=== PATIENT | male | born 1950 | race Caucasian/White ===

== ENCOUNTER → 2016-09-19 | Outpatient (CLI) | payer OTHER, MEDICARE | LOC: BHFA 10:15 | PROVIDERS: ATTEND Internal Medicine Cardiovascular Disease | DX: I25.10 Atherosclerotic heart disease of native coronary artery without angina pectoris (principal); I77.9 Disorder of arteries and arterioles, unspecified; E78.5 Hyperlipidemia, unspecified ==

== ENCOUNTER 2016-09-20 09:56 | Observation (INO) | payer OTHER, MEDICARE ==
--- NOTE | 2016-09-19 16:38 | GHP ---
HISTORY OF PRESENT ILLNESS: This is a gentleman who is admitted for a transurethral resection of bladder cancer. He is 65 years old. He presented from [facility], because of urologic abnormality noted on imaging study, and that showed he had a bladder lesion. He has denied hematuria, UTIs, urinary infections, and no history of stones. The recent MRI and CT scan study showed the incidental bladder lesion and cystoscopy confirmed that he had a right-sided bladder lesion. He is admitted for TURBT. PAST MEDICAL HISTORY: Bladder cancer, heart disease, and neurologic issues related to cervical disc disease. PAST SURGICAL HISTORY: Carotid endarterectomy and cervical fusion. MEDICATIONS: Pravastatin, trazodone, and CoQ10. ALLERGIES: None. FAMILY HISTORY: Heart disease. SOCIAL HISTORY: Light alcohol consumption, nonsmoker. He is not . Is a registered nurse. REVIEW OF SYSTEMS: Negative cardiac, respiratory, GI, and endocrine. PHYSICAL EXAM: VITAL SIGNS: Stable. CHEST: Clear. HEART: Regular rate and rhythm. ABDOMEN: Normal. No organomegaly, rebound, or guarding. EXTREMITIES : Lower extremities are normal. ASSESSMENT/PLAN: At the present time, he is admitted for the transurethral resection of the bladder cancer. /[id number]/MODL MTDD
[~2016-09-20 09:56] MED LIST: D5W LR 1,000 ML IV ONE; ceFAZolin 2 GM/DEXTROSE 100 ML IV ONE
[2016-09-20] MEDS ORDERED: LR 1,000 ML IV ONE (10:26)
[2016-09-20] MEDS ORDERED: CEFAZOLIN 2 GM/DEXTROSE/100 ML BAG IV ONE (10:31)
[2016-09-20] MEDS ORDERED: MIDAZOLAM 2 MG/2 ML VIAL ONE (11:08)
[2016-09-20] MEDS ORDERED: fentaNYL 250 MCG/5 ML INJ ONE (11:11)
[2016-09-20] MEDS ORDERED: ONDANSETRON 4 MG/2 ML VIAL ONE (11:11)
[2016-09-20] MEDS ORDERED: DEXAMETHASONE 4 MG/ML VIAL ONE ×2 (11:11)
[2016-09-20] MEDS ORDERED: PROPOFOL 200 MG/20 ML VIAL ONE (11:11)
[2016-09-20] MEDS ORDERED: ROCURONIUM 50 MG/5 ML VIAL ONE (11:12)
[2016-09-20] MEDS ORDERED: LIDOCAINE 2% JELLY 5 ML TUBE ONE (11:12)
[2016-09-20] MEDS ORDERED: LIDOCAINE 2% 5 ML SDV ONE (11:12)
[2016-09-20] MEDS ORDERED: SUGAMMADEX SODIUM 200 MG/2 ML VIAL IVP ONE (11:39)
[2016-09-20] MEDS ORDERED: LIDOCAINE 2% JELLY 20 ML (UROJECT) ONE (11:49)
[2016-09-20] MEDS ORDERED: fentaNYL 100 MCG/2 ML INJ ONE ×2 (12:35→12:56)
--- NOTE | 2016-09-20 12:45 | GOP ---
DATE OF OPERATION: 09/20/2016 SURGEON: Reece Lopez MD PREOPERATIVE DIAGNOSIS: Bladder cancer. POSTOPERATIVE DIAGNOSIS: Bladder cancer. PROCEDURE PERFORMED: Transurethral resection of large bladder tumor. FINDINGS: SPECIMENS: Pathology sent. ESTIMATED BLOOD LOSS: Less than 25 mL. DESCRIPTION OF PROCEDURE: The gentleman underwent general anesthesia, and after appropriate time-ou t, and being prepped and draped in normal sterile fashion, the resectoscope was passed under direct vision into the bladder. On the left side of the bladder, he had a sessile lesion with multiple are as around it that were involved, and so after inspection of the of the main lesion, I was able to go to the base of it, and resected the base and removed the tumor out in total, and then cauterization of the base of it. It appear that it was into the muscle. Then he had several satellite lesions t hat were resected and same thing; it appeared that there was muscle involvement on the biopsy. Then some of the areas that were somewhat frondlike, did electrocauterization of those. At the end of t he procedure, there were no abnormal appearing lesions in the bladder, ureteral orifices were preser patricia, and after the cauterization on the bipolar button, there were no bleeding sites. Appeared to b e no perforation of the bladder. Then at that point, Uro-jet placed in the urethra, a 20-[place]uv[place] 3-w ay catheter with 15 cc balloon inflated and irrigated clear. We will address whether he will be admitted or be an outpatient. I would leave the catheter in over the weekend if he does go home and follow up with me on Saturday for a voiding trial. COMPLICATIONS: No complications. Copy requested to: Laura /[id number]/MODL
[2016-09-20] MEDS ORDERED: ZOLPIDEM TARTRATE 5 MG TAB PO PRN (13:19)
[2016-09-20] MEDS ORDERED: ONDANSETRON DISINTEGRATING 4 MG TAB PO PRN (13:19)
[2016-09-20] MEDS ORDERED: ACETAMINOPHEN 325 MG TAB PO PRN (13:19)
[2016-09-20] MEDS ORDERED: ONDANSETRON 4 MG/2 ML VIAL IVP PRN (13:19)
[2016-09-20] MEDS ORDERED: D5W 1/2 NS 1,000 ML IV SCH (13:30)
[2016-09-20] MEDS: oxyCODONE IR 5 MG TAB PO PRN ×3 (14:09→21:31)
[2016-09-20] MEDS ORDERED: HYDROmorphONE/DILAUDID 1 MG/ML SYR IVP PRN (18:08)
[2016-09-20] MEDS ORDERED: traZODone 100 MG TAB PO SCH (21:00)
[2016-09-20 21:34] VITALS: RESP 16
[2016-09-21] MEDS: oxyCODONE IR 5 MG TAB PO PRN (05:27)
--- NOTE | 2016-09-21 07:37 | SOAPPROG ---
SOAP Progress Note Assessment/Plan: Assessment: Neoplasm of bladder Acute POD 1, no complaints Plan: remove painter and consider dc, discussed risks after cath removal 09/21/16 07:36 Subjective: doing well Objective: Vital Signs Temp Pulse Resp BP Pulse Ox 36.6 C 76 16 114/74 96 09/21/16 05:05 09/21/16 05:05 09/21/16 05:05 09/21/16 05:05 09/21/16 05:05 09/20/16 09/21/16 09/22/16 05:59 05:59 05:59 Intake Total 1300 Output Total 2620 Balance -1320 Physical Exam - Physical Exam General Appearance: alert Neck: limited range of motion Respiratory: No respiratory distress Neuro/Psych: alert, oriented x 3 ICD10 Worksheet Patient Problems: Problems Problem Status Onset Neoplasm of bladder Acute CAD (coronary artery disease) Acute Carotid stenosis, right Acute Cervical radiculitis Acute Neck pain Acute Spinal cord compression Acute
[2016-09-21] MEDS: PHENAZOPYRIDINE HCL 200 MG TAB PO SCH ×2 (08:17→13:34)
[2016-09-21] MEDS: PRAVASTATIN SODIUM 10 MG TAB PO SCH ×2 (08:19→08:22)
[2016-09-21] MEDS ORDERED: ASPIRIN EC 81 MG TAB PO SCH (09:00)
[2016-09-21] MEDS ORDERED: Herbals/Supplements -Info Only PO SCH (09:00)
[2016-09-21] MEDS ORDERED: MULTIVITAMINS 1 EACH TAB PO SCH (09:00)
[2016-09-21] MEDS ORDERED: VITAMIN B COMPLEX 1 EA CAP/TAB PO SCH (09:00)
[2016-09-21] MEDS ORDERED: OMEGA-3 FATTY ACIDS 1,000 MG CAP PO SCH (09:00)
[2016-09-21] MEDS ORDERED: NON-FORMULARY NEW DRUG (Vitamin B Complex [Super B-50 Complex] 1 EACH) PO SCH (09:00)
[2016-09-21 11:56] VITALS: BP 138/83; PULSE 74; TEMP 98.6; O2SAT 97
== END 2016-09-21 13:44 | disposition home or self-care (01) ==
LOC: F3E 09:56 → F1N 13:24
PROVIDERS: ADMIT Specialist; ATTEND Specialist
PROC: 0TBB8ZZ Excision of Bladder, Via Natural or Artificial Opening Endoscopic (ICD-10-PCS; principal; 2016-09-20 11:45)
DX: C67.9 Malignant neoplasm of bladder, unspecified (principal)
CPT/HCPCS: 52234; J0690; J1100; J1170; J2250; J2405; J2704; J3010

== ENCOUNTER → 2016-09-27 | Outpatient (CLI) | payer OTHER, MEDICARE | LOC: FIMAGING 12:40 | PROVIDERS: ATTEND Neurological Surgery | DX: Z09 Encounter for follow-up examination after completed treatment for conditions other than malignant neoplasm (principal); Z98.1 Arthrodesis status ==

== ENCOUNTER → 2017-02-03 | Outpatient (CLI) | payer OTHER, MEDICARE | LOC: FIMAGING 14:44 | PROVIDERS: ATTEND Physician Assistant | DX: M48.06 Spinal stenosis, lumbar region (principal); G95.89 Other specified diseases of spinal cord; M51.86 Other intervertebral disc disorders, lumbar region ==

== ENCOUNTER 2018-01-08 03:13 | Observation (INO) | payer OTHER, MEDICARE ==
[2018-01-08] MEDS ORDERED: ONDANSETRON 4 MG/2 ML VIAL IVP ONE (03:29)
[2018-01-08] MEDS ORDERED: fentaNYL 100 MCG/2 ML INJ IVP ONE (03:29)
[2018-01-08] MEDS ORDERED: ONDANSETRON 4 MG/2 ML VIAL ONE ×2 (03:31→09:20)
[2018-01-08] MEDS ORDERED: fentaNYL 100 MCG/2 ML INJ ONE ×2 (03:31→09:19)
[2018-01-08] MEDS ORDERED: NS 1,000 ML IV ONE (03:32)
--- NOTE | 2018-01-08 03:38 | EDPHY ---
H & P Time Seen by Provider: 01/08/18 03:23 HPI/ROS: CHIEF COMPLAINT: Abdominal pain, nausea, vomiting HISTORY OF PRESENT ILLNESS: Patient states he felt like he developed "indigestion"about 3 hr prior to arrival. He did have some nausea at that time. Since midnight pain has gotten progressively worse and now is severe. Seems to be mostly upper abdomen but does generalized. Never had this before. [place] well earlier yesterday. No diarrhea constipation. No fevers. No alcohol. Patient is being treated for bladder cancer but no recent changes in treatment. No dysuria. Denies trauma. REVIEW OF SYSTEMS: Constitutional: No fever, no chills. Eyes: No discharge. ENT: No sore throat. Cardiovascular: No chest pain, no palpitations. Respiratory: No cough, no shortness of breath. Gastrointestinal: Per HPI Genitourinary: No dysuria. Musculoskeletal: No back pain. Skin: No rashes. Neurological: No headache. General Appearance: Alert, severe distress, writhing. Eyes: Pupils equal and round no pallor or injection. ENT, Mouth: Mucous membranes moist. Respiratory: There are no retractions, lungs are clear to auscultation. Cardiovascular: Regular rate and rhythm. Gastrointestinal: Abdomen is soft, tenderness to palpation diffusely and especially in the right upper quadrant. Slightly hyperactive bowel sounds. No CVA tenderness. Neurological: Awake alert, no focal neurologic deficits. Skin: Warm and dry, no rashes. Musculoskeletal: Neck is supple nontender. Extremities are symmetrical, full range of motion, no edema. Psychiatric: Patient is oriented X 3, there is no agitation. Medical/surgical history: Bladder cancer, history of bilateral inguinal hernia surgeries. Carotid endarterectomy. Cervical fusion. Knee surgery. 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 Smoking Status: Former smoker Constitutional: Initial Vital Signs Heart Rate 92 01/08/18 03:15 Respiratory Rate 18 01/08/18 03:15 Blood Pressure 196/152 H 01/08/18 03:15 O2 Sat (%) 95 01/08/18 03:15 O2 Delivery Mode Nasal Cannula O2 (L/minute) 2 Allergies/Adverse Reactions: No Known Allergies Allergy (Verified 01/08/18 04:07) Home Medications: Medication Instructions Recorded Aspirin EC [Aspirin EC 81 mg (*)] 81 mg PO DAILY 09/13/16 Herbals/Supplements -Info Only 1 ea PO DAILY 09/13/16 Multivitamins [Multivitamin (*)] 1 each PO DAILY 09/13/16 [place]-3 Fatty Acids [Fish Oil 1000 1,000 mg PO DAILY 09/13/16 mg (*)] Pravastatin Sodium [Pravachol] 10 mg PO DAILY 09/13/16 Vitamin B Complex [Super B-50 1 each PO DAILY 09/13/16 Complex] Acetaminophen [Tylenol 325mg (*)] 650 mg PO Q4HRS PRN #0 tab 09/21/16 Medical Decision Making - Diagnostics EKG Interpretation: EKG shows normal sinus rhythm with left anterior fascicular block, poor R-wave progression. Otherwise normal intervals. No acute ST T-wave changes to suggest ischemia or infarct. Compared to EKG 2013 LAFB is new. Impression abnormal, nonspecific EKG. See trace master. ED Course/Re-evaluation: Multiple re-evaluations show pain improved with analgesics medications. Remains hypertensive. 5:[address] Reese Bustamante. Accepted for admission at [facility]. Antibiotics started in the emergency department. Transfer arranged. Differential Diagnosis: Differential diagnosis includes but is not limited to cholelithiasis, cholecystitis, pancreatitis, bowel obstruction, acute coronary syndrome, dissection, kidney stone. After evaluation patient with cholelithiasis and cholecystitis on CT scan. Elevated white blood cell count. No evidence of obstruction, perforation, acute coronary syndrome or dissection. Awaiting lipase but common bile duct and pancreas is normal on CT scan. Plan is for transfer to [facility] for definitive surgical intervention. Discussed with Dr. Bustamante who accepted patient. Antibiotics and analgesics ongoing. Improved on transfer to [facility] [employer] [facility] [employer] [facility] [employer]. - Data Points Laboratory Results: Laboratory Results 01/08/18 03:30 01/08/18 01/08/18 01/08/18 03:49 03:47 03:30 WBC 15.21 10^3/uL H 10^3/uL (3.80-9.50) RBC 5.75 10^6/uL 10^6/uL (4.40-6.38) Hgb 16.0 g/dL g/dL (13.7-17.5) Hct 47.3 % % (40.0-51.0) MCV 82.3 fL fL (81.5-99.8) MCH 27.8 pg L pg (27.9-34.1) MCHC 33.8 g/dL g/dL (32.4-36.7) RDW 12.6 % % (11.5-15.2) Plt Count 277 10^3/uL 10^3/uL (150-400) MPV 10.1 fL fL (8.7-11.7) Neut % (Auto) 82.1 % H % (39.3-74.2) Lymph % (Auto) 10.3 % L % (15.0-45.0) [place] % (Auto) 5.7 % % (4.5-13.0) Eos % (Auto) 1.1 % % (0.6-7.6) Baso % (Auto) 0.5 % % (0.3-1.7) Nucleat RBC Rel Count 0.0 % % (0.0-0.2) Absolute Neuts (auto) 12.48 10^3/uL H 10^3/uL (1.70-6.50) Absolute Lymphs (auto) 1.56 10^3/uL 10^3/uL (1.00-3.00) Absolute Monos (auto) 0.87 10^3/uL H 10^3/uL (0.30-0.80) Absolute Eos (auto) 0.17 10^3/uL 10^3/uL (0.03-0.40) Absolute Basos (auto) 0.08 10^3/uL 10^3/uL (0.02-0.10) Absolute Nucleated RBC 0.00 10^3/uL 10^3/uL (0-0.01) Immature Gran % 0.3 % % (0.0-1.1) Immature Gran # 0.05 10^3/uL 10^3/uL (0.00-0.10) POC Sodium 139 mEq/L mEq/L (135-145) POC Potassium 3.6 mEq/L mEq/L (3.3-5.0) POC Chloride 102.0 mEq/L mEq/L (97-110) POC Total CO2 27 mEq/L mEq/L (22-31) POC BUN 16 mg/dL mg/dL (7-23) POC Creatinine 1.1 mg/dL mg/dL (0.7-1.3) POC Glucose 119 mg/dL H mg/dL (70-100) POC Calcium 10.0 mg/dL mg/dL (8.5-10.4) POC Total Bilirubin 0.8 mg/dL mg/dL (0.1-1.4) POC AST 39 IU/L IU/L (17-59) POC ALT 33 IU/L IU/L (21-72) POC Alk Phosphatase 49 IU/L IU/L (38-126) POC Troponin I 0.00 ng/mL ng/mL (0.00-0.08) POC Total Protein 7.5 g/dL g/dL (6.3-8.2) POC Albumin 4.3 g/dL g/dL (3.5-5.0) Lipase 01/08/18 03:30 WBC RBC Hgb Hct MCV MCH MCHC RDW Plt Count MPV Neut % (Auto) Lymph % (Auto) [place] % (Auto) Eos % (Auto) Baso % (Auto) Nucleat RBC Rel Count Absolute Neuts (auto) Absolute Lymphs (auto) Absolute Monos (auto) Absolute Eos (auto) Absolute Basos (auto) Absolute Nucleated RBC Immature Gran % Immature Gran # POC Sodium POC Potassium POC Chloride POC Total CO2 POC BUN POC Creatinine POC Glucose POC Calcium POC Total Bilirubin POC AST POC ALT POC Alk Phosphatase POC Troponin I POC Total Protein POC Albumin Lipase 221 IU/L IU/L (23-300) Medications Given: Discontinued Medications Fentanyl (Sublimaze) 100 mcg IVP EDNOW ONE Stop: 01/08/18 03:30 Last Admin: 01/08/18 03:37 Dose: 100 mcg Hydromorphone HCl (Dilaudid) 0.5 mg IVP EDNOW ONE Stop: 01/08/18 05:14 Last Admin: 01/08/18 05:21 Dose: 0.5 mg Sodium Chloride (Ns) 1,000 mls @ 0 mls/hr IV EDNOW ONE; Wide Open PRN Reason: Protocol Stop: 01/08/18 03:33 Last Admin: 01/08/18 03:38 Dose: 1,000 mls Cefoxitin Sodium 2 gm/ Sodium (Chloride) 100 mls @ 200 mls/hr IV EDNOW ONE PRN Reason: Protocol Stop: 01/08/18 05:34 Last Admin: 01/08/18 05:40 Dose: 100 mls Ondansetron HCl (Zofran) 4 mg IVP EDNOW ONE Stop: 01/08/18 03:30 Last Admin: 01/08/18 03:37 Dose: 4 mg Point of Care Test Results: Chemistry 01/08/18 01/08/18 03:49 03:47 POC Sodium 139 mEq/L mEq/L (135-145) POC Potassium 3.6 mEq/L mEq/L (3.3-5.0) POC Chloride 102.0 mEq/L mEq/L (97-110) POC Total CO2 27 mEq/L mEq/L (22-31) POC BUN 16 mg/dL mg/dL (7-23) POC Creatinine 1.1 mg/dL mg/dL (0.7-1.3) POC Glucose 119 mg/dL H mg/dL (70-100) POC Calcium 10.0 mg/dL mg/dL (8.5-10.4) POC Total Bilirubin 0.8 mg/dL mg/dL (0.1-1.4) POC AST 39 IU/L IU/L (17-59) POC ALT 33 IU/L IU/L (21-72) POC Alk Phosphatase 49 IU/L IU/L (38-126) POC Troponin I 0.00 ng/mL ng/mL (0.00-0.08) POC Total Protein 7.5 g/dL g/dL (6.3-8.2) POC Albumin 4.3 g/dL g/dL (3.5-5.0) Departure - Departure Disposition: [facility] Acute Clinical Impression: Cholelithiasis and acute cholecystitis without obstruction Condition: Fair
[2018-01-08] MEDS ORDERED: HYDROmorphONE/DILAUDID 1 MG/ML INJ IVP PRN ×3 (03:49→10:58)
[2018-01-08] MEDS ORDERED: HYDROmorphONE/DILAUDID 1 MG/ML INJ ONE (03:50)
--- NOTE | 2018-01-08 03:59 | CPEKG ---
Heart Rate: 82 RR Interval: 732 P-R Interval: 160 QRSD Interval: 114 QT Interval: 396 QTC Interval: 463 P Mico: 60 QRS Mico: -54 T Wave Mico: 59 EKG Severity - ABNORMAL ECG - EKG Impression: SINUS RHYTHM EKG Impression: PROBABLE LEFT ATRIAL ABNORMALITY EKG Impression: LEFT ANTERIOR FASCICULAR BLOCK Electronically Signed By: Anoop Tate 13-Jan-2018 02:39:24
[2018-01-08] MEDS ORDERED: IOPAMIDOL (ISOVUE-300) 100 ML BTL ONE (04:09)
[2018-01-08 04:47] LABS: PLATELET COUNT 277 10^3/uL (150-400)
[2018-01-08] MEDS ORDERED: cefOXitin SODIUM 2 GM in NS 100 ML IV ONE (05:05)
[2018-01-08] MEDS ORDERED: HYDROmorphONE/DILAUDID 1 MG/ML INJ IVP ONE (05:13)
[2018-01-08] MEDS ORDERED: HEPARIN 1000 UNIT/1 ML MDV ONE (07:18)
[2018-01-08] MEDS ORDERED: ceFAZolin 1 GM/5 ML SYR ONE (07:18)
[2018-01-08] MEDS ORDERED: BUPIVACAINE 0.25% 30 ML SDV ONE (07:18)
--- NOTE | 2018-01-08 07:58 | PDGENHP ---
History and Physical History and Physical: 67 Y M presented to urgent care with progressive upper abdominal pain overnight. He has never had these symptoms before. CT was done, see report. US shows large gallstone at neck of gallbladder (images personally reviewed). No fever. Some nausea, no vomiting. WBCs 15,000. Normal LFTs. PMH: CAD (no stents, pt says he has built collaterals, had recent stress test, EKG done this am), bladder CA PSH: CEA, cervical fusion, TKA, multiple knee scopes, lap BIH repairs, cystoscopy. Meds: pravastatin, MVIs, Vit B, ASA, BCG treatment for bladder CA--on hiatus for now. 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 Here for a wedding. Fam Hx: noncontributory gen: alert, nad heent: no jaundice pulm: ctab cor: rrr abd: soft, +RUQ tenderness ext: wwp A/P: 67 Y M acute onset calculous cholecystitis. Lap skye. Risks and options discussed. Dr. Bustamante aware.
[2018-01-08] MEDS ORDERED: LR 1,000 ML IV ONE (08:09)
[2018-01-08] MEDS ORDERED: MIDAZOLAM 2 MG/2 ML VIAL IVP ONE (08:38)
--- NOTE | 2018-01-08 08:41 | PDANEPAE ---
ANE Past Medical History - Cardiovascular History Hx Hypertension: No Hx Arrhythmias: No Hx Chest Pain: No Hx Coronary Artery / Peripheral Vascular Disease: Yes Hx CHF / Valvular Disease: No Hx Palpitations: No Cardiovascular History Comment: stress test WNL 3-16. carotid endarterectomy 2013. october 2017 stress test done and was normal - Pulmonary History Hx COPD: No Hx Asthma/Reactive Airway Disease: No Hx Recent Upper Respiratory Infection: No Hx Oxygen in Use at Home: No Hx Sleep Apnea: No Pulmonary History Comment: denies SOB climbing 3 flights stairs - Neurologic History Hx Cerebrovascular Accident: No Hx Seizures: No Hx Dementia: No Neurologic History Comment: no N/T arms s/p cervical fuison - Endocrine History Hx Diabetes: No - Renal History Hx Renal Disorders: No - Liver History Hx Hepatic Disorders: No - Neurological & Psychiatric Hx Hx Neurological and Psychiatric Disorders: No - Cancer History Hx Cancer: Yes Cancer History Comment: basal CA- removed - Congenital Disorder History Hx Congenital Disorders: No - GI History Hx Gastrointestinal Disorders: No Gastrointestinal History Comment: mild heartburn. mild dysphasia since cervical surgery - Other Health History Other Health History: arthritis, disc disease - Chronic Pain History Chronic Pain: No - Surgical History Prior Surgeries: L knee replacement 04/02. multiple knee scopes. wood. ing. hernia repair,cervical fusion 2-14,right carotid endarterectomy, ANE Review of Systems Review of Systems: - Exercise capacity METS (RN): 5 METS ANE Patient History - Allergies Allergies/Adverse Reactions: No Known Allergies Allergy (Verified 01/08/18 04:07) - Home Medications Home medications: home medication list seen and reviewed Home Medications: Aspirin EC [Aspirin EC 81 mg (*)] 81 mg PO DAILY 09/13/16 [Last Taken 2 Weeks Ago ~09/06/16] Herbals/Supplements -Info Only 1 ea PO DAILY 09/13/16 [Last Taken 1 Week Ago ~] Multivitamins [Multivitamin (*)] 1 each PO DAILY 09/13/16 [Last Taken 1 Week Ago ~09/13/16] [place]-3 Fatty Acids [Fish Oil 1000 mg (*)] 1,000 mg PO DAILY 09/13/16 [Last Taken 1 Week Ago ~09/13/16] Pravastatin Sodium [Pravachol] 10 mg PO DAILY 09/13/16 [Last Taken 3 Days Ago ~ 09/17/16] Vitamin B Complex [Super B-50 Complex] 1 each PO DAILY 09/13/16 [Last Taken 1 Week Ago ~09/13/16] - NPO status NPO Status: no food or drink >8 hours NPO Since - Liquids (Date): 01/08/18 NPO Since - Liquids (Time): 01:00 NPO Since - Solids (Date): 01/07/18 NPO Since - Solids (Time): 21:00 - Anes Hx Anes Hx: no prior problems - Smoking Hx Smoking Status: Former smoker - Family Anes Hx Family Hx Anesthesia Complications: no ANE Labs/Vital Signs - Labs Result Diagrams: 01/08/18 03:30 - Vital Signs Blood Pressure: 150/92 Heart Rate: 89 Respiratory Rate: 16 O2 Sat (%): 96 Height: 165.1 cm Weight: 63.503 kg ANE Physical Exam - Airway Neck exam: decreased ROM Mallampati Score: Class 2 Mouth exam: normal dental/mouth exam - Pulmonary Pulmonary: no respiratory distress, no rales or rhonchi, clear to auscultation - Cardiovascular Cardiovascular: regular rate and rhythym, no murmur, rub, or gallop - ASA Status ASA Status: II ANE Anesthesia Plan Anesthesia Plan: general endotracheal anesthesia
[2018-01-08] MEDS ORDERED: LIDOCAINE 2% 5 ML SDV ONE (09:19)
[2018-01-08] MEDS ORDERED: PROPOFOL 200 MG/20 ML VIAL ONE (09:19)
[2018-01-08] MEDS ORDERED: ROCURONIUM 50 MG/5 ML VIAL ONE (09:19)
[2018-01-08] MEDS ORDERED: KETOROLAC 30 MG/1 ML SDV ONE (09:20)
[2018-01-08] MEDS ORDERED: DEXAMETHASONE 4 MG/ML VIAL ONE ×2 (09:20)
[2018-01-08] MEDS ORDERED: PHENYLEPHRINE HCL 100 MCG/ML SYR ONE (09:35)
[2018-01-08] MEDS ORDERED: MEPERIDINE 25 MG/0.5 ML AMP IVP PRN (10:04)
[2018-01-08] MEDS ORDERED: ACETAMINOPHEN 500 MG TAB PO PRN (10:04)
[2018-01-08] MEDS ORDERED: oxyCODONE IR 5 MG TAB PO PRN (10:04)
[2018-01-08] MEDS ORDERED: LR 500 ML IV PRN (10:04)
[2018-01-08] MEDS ORDERED: PROMETHAZINE HCL 25 MG/ML INJ IVP PRN (10:04)
[2018-01-08] MEDS ORDERED: ONDANSETRON 4 MG/2 ML VIAL IVP PRN ×2 (10:04→10:58)
[2018-01-08] MEDS ORDERED: NALOXONE HCL 0.4 MG/ML INJ IVP PRN (10:04)
[2018-01-08] MEDS ORDERED: fentaNYL 100 MCG/2 ML INJ IVP PRN (10:04)
[2018-01-08] MEDS ORDERED: LABETALOL HCL 5 MG/ML 20 ML MDV ONE (10:15)
--- NOTE | 2018-01-08 10:42 | POSTANESTH ---
Post Anesthetic Evaluation Cardiovascular Status: Similar to Pre-Op Cond Respiratory Status: Normal, Stable, Similar to Pre-op Cond. Level of Consciousness/Mental Status: Can Participate in Eval, Mildly Sleepy, Arousable Pain Control: Adequate, Prn Tx Ordered Nausea/Vomiting Control: Adequate, Prn Tx Ordered Complications Possibly Related to Anesthesia: None Noted
[2018-01-08] MEDS ORDERED: OXYCODONE/APAP 5/325 TAB PO PRN (10:58)
--- NOTE | 2018-01-08 11:02 | POSTOPPROG ---
Post Op Note Date of Operation: 01/08/18 Surgeon: Tej Bustamante Project Development Director: Perlita Preston Anesthesiologist: Juma Rebolledo Anesthesia: GET(General Endotracheal) Pre-op Diagnosis: acute cholecystitis, cholelithiasis Post-op Diagnosis: same Procedure: lap skye Findings: stones with inflammation Inf/Abcess present in the surg proc area at time of surgery?: Yes Depth: Organ Space EBL: Minimal Complications: none Specimen(s): gallbladder to pathology
[2018-01-08] MEDS ORDERED: HYDROmorphONE/DILAUDID 2 MG/ML INJ ONE (12:44)
[2018-01-08] MEDS: KETOROLAC 15 MG/1 ML SDV IVP SCH ×3 (13:26→22:55)
[2018-01-08] MEDS ORDERED: ACETAMINOPHEN 325 MG TAB PO PRN (15:42)
[2018-01-08] MEDS ORDERED: PRAVASTATIN SODIUM 10 MG TAB PO SCH (21:00)
[2018-01-08] MEDS: ZOLPIDEM TARTRATE 5 MG TAB PO PRN (22:54)
[2018-01-08] MEDS: DOCUSATE SODIUM 100 MG CAP PO SCH (22:54)
[2018-01-09] MEDS: ZOLPIDEM TARTRATE 5 MG TAB PO PRN (02:23)
[2018-01-09] MEDS: KETOROLAC 15 MG/1 ML SDV IVP SCH (05:54)
[2018-01-09 08:17] VITALS: BP 127/81
[2018-01-09] MEDS: DOCUSATE SODIUM 100 MG CAP PO SCH (08:51)
--- NOTE | 2018-01-09 09:15 | ASMTLACE ---
LACE Length of stay for Answers: 1 day current admission Acuity / Level of Answers: No Care: Did the patient have an inpatient admission? Comorbidities - select Answers: Any tumor (including all that apply lymphoma or leukemia) Other Notes: cholesystitis # of Emergency department Answers: 1-2 visits in the last 6 months Score: 5 Date Signed: 01/09/2018 09:15 AM Electronically Signed By:Stacy Salgado RN
--- NOTE | 2018-01-09 09:19 | ASMTCMCOM ---
CM Note CM Note Notes: Chart reviewed. Patient admitted via ED with abdominal pain. Diagnosed with choleysistitis. S/P lap [place]. Medically cleared for dc to home. No needs identified. CM available should needs arise. Plan: to dc to home independent. Date Signed: 01/09/2018 09:18 AM Electronically Signed By:Stacy Salgado RN
[2018-01-10] MEDS ORDERED: ENOXAPARIN 40 MG/0.4 ML SYR SC SCH (09:00)
[2018-01-10] MEDS ORDERED: ASPIRIN EC 81 MG TAB PO SCH (09:00)
--- NOTE | 2018-01-11 19:55 | GOP ---
[f rep st] OPERATIVE REPORT DATE OF OPERATION: 01/08/2018 SURGEON: Tej Bustamante MD WIRE STOCKKEEPER: CLAUDIO Dee. ANESTHESIOLOGIST: Juma Rebolledo MD. PREOPERATIVE DIAGNOSIS: Acute cholecystitis. POSTOPERATIVE DIAGNOSIS: Acute cholecystitis. PROCEDURE PERFORMED: Laparoscopic cholecystectomy. FINDINGS: The patient was found to have a hydrops of the gallbladder with marked severe acute cholec ystitis and a single large stone blocking up the gallbladder. Ducts were small. DESCRIPTION OF PROCEDURE: The patient was taken to the operating room where he received a satisfacto ry general endotracheal anesthesia by Dr. Rebolledo, placed in the supine position, and prepped and drape d in the usual sterile fashion. A periumbilical incision was made. A Veress needle inserted. Pneum operitoneum was established. Trocar was introduced. Laparoscope introduced. Good visualization was obtained. Three other trocars were placed in the upper abdomen under direct vision. The gallbladde r was elevated up, adhesions were taken down, freeing the omentum off the gallbladder. The gallbladd er was quite tense and hydrops and thickened. It was elevated up. The cystic triangle was carefully dissected free. The cystic artery and cystic duct were isolated. A good clear view was obtained. The common duct position was ascertained. Cystic duct and cystic artery were multiply hemoclipped an d divided with care to avoid injury to the common bile duct. The peritoneum of the gallbladder was i ncised. The gallbladder was dissected free from the bed and hepatic fossa. It was then extracted th rough the upper midline port site. This required enlargement of the port site as the single large st one was quite big equaling a golf ball in size. The wound was irrigated. Hemostasis was assured. T rocars removed under direct vision. Trocar sites were closed with 0 Vicryl for the fascia, 4-0 Monoc ryl subcuticular stitch for the skin. All wounds were infiltrated with 0.5% Marcaine. Blood loss wa s less than 50 cc. There were no complications. He was taken to the recovery room in good condition . /[id number]/MODL
== END 2018-01-09 09:25 | disposition home or self-care (01) ==
LOC: CED 03:13 → INTOOBSV 05:05 → CEDHOLD 05:05 → F3E 13:08
PROVIDERS: ADMIT Surgery; ATTEND Surgery
PROC: 0FT44ZZ Resection of Gallbladder, Percutaneous Endoscopic Approach (ICD-10-PCS; principal; 2018-01-08 09:00)
DX: K80.00 Calculus of gallbladder with acute cholecystitis without obstruction (principal); K82.1 Hydrops of gallbladder; E86.9 Volume depletion, unspecified; Z87.891 Personal history of nicotine dependence; Z85.51 Personal history of malignant neoplasm of bladder; Z96.652 Presence of left artificial knee joint; Z98.1 Arthrodesis status
CPT/HCPCS: 47562; 74177; 76705; 88304; 93005; 96361; 96365; 96375; 99285; G0378; J0690; J0694; J1100; J1170; J1885; J2250; J2370; J2405; J2704; J3010; Q9967; 80053-PO; 84484-PO